=== PATIENT | female | born 1945 | race Caucasian/White ===

== ENCOUNTER 2022-02-07 10:45 | Emergency (ER) | payer MEDICAID, OTHER ==
[~2022-02-07] VITALS: Ht 149.9 cm; Wt 98.9 kg
[~2022-02-07 10:45] MED LIST: ALLO100T21 PO; CARV6.25 PO; FURO-570 PO; GEMF600T5 PO; GLIP5TAB14 PO; HYDR-4004 PO; LOSA50TA57 PO; METF500T2 PO; ROSU10TA1 PO; SITA100T8 PO; SYN.025 PO
[2022-02-07 10:56] VITALS: BP 171/66
--- NOTE | 2022-02-07 11:09 | NUR ---
DR. VILLALBA BEDSIDE EVALUATING PT
[2022-02-07] MEDS ORDERED: LIDOCAINE MPF 1% 10 MG/ML VIAL INJ ONE (11:15)
--- NOTE | 2022-02-07 11:20 | NUR ---
XRAY AT PATIENT BEDSIDE
--- NOTE | 2022-02-07 11:22 | NUR ---
76 y/o female, pt injured leg 10 days ago and has abscess above ankle with pain radiating down to right foot. area appears to have swelling, bruising and redness. 06/08 pmh: dm2, htn nka med: list of meds with pt
[2022-02-07] MEDS ORDERED: CEPH-588 PO (12:26)
[2022-02-07 12:44] VITALS: BP 171/66
== END 2022-02-07 12:44 | disposition home or self-care (01) ==
LOC: MED 10:45
DX: S93.401A Sprain of unspecified ligament of right ankle, initial encounter (principal); L03.115 Cellulitis of right lower limb; E11.9 Type 2 diabetes mellitus without complications; I10 Essential (primary) hypertension; E07.9 Disorder of thyroid, unspecified; Z79.899 Other long term (current) drug therapy; Z79.84 Long term (current) use of oral hypoglycemic drugs; X58.XXXA Exposure to other specified factors, initial encounter; Y93.89 Activity, other specified; Y92.89 Other specified places as the place of occurrence of the external cause; Y99.8 Other external cause status
CPT/HCPCS: 10060; 73610; 99283; J2001